=== PATIENT | female | born 1990 | race African-American/Black ===

== ENCOUNTER 2016-10-12 17:34 | Emergency (ER) | payer OTHER ==
[~2016-10-12] VITALS: Ht 152.4 cm; Wt 79.4 kg
[2016-10-12 17:35] VITALS: BP 127/64
--- NOTE | 2016-10-12 18:09 | PHYS DOC ---
Past Medical History Past Medical History: No Pertinent History Past Surgical History: Cholecystectomy Alcohol Use: None Drug Use: None Adult General Chief Complaint Chief Complaint: ABSCESS HPI HPI Patient is a 26 year old female presents to the emergency department stating that she has an abscess under her left axilla. She states it's been there for the last week. She states within the last 2 days it is becoming larger. Patient denies any drainage coming from the area. Denies any fever, chills or any nausea vomiting. Patient denies any previous history of abscesses. Review of Systems Review of Systems Constitutional: Denies fever or chills [] Eyes: Denies change in visual acuity, redness, or eye pain [] HENT: Denies nasal congestion or sore throat [] Respiratory: Denies cough or shortness of breath [] Cardiovascular: No additional information not addressed in HPI [] GI: Denies abdominal pain, nausea, vomiting, bloody stools or diarrhea [] : Denies dysuria or hematuria [] Musculoskeletal: Denies back pain or joint pain [] Integument: Denies rash or skin lesions. Complaint of abscess left axilla Neurologic: Denies headache, focal weakness or sensory changes [] Endocrine: Denies polyuria or polydipsia [] Current Medications Current Medications Current Medications Medications (Trade) Dose Ordered Sig/Sabrina Start Time Stop Time Status Last Admin Dose Admin Lidocaine/Sodium Bicarbonate (Buffered Lidocaine 1%) 20 ml 1X ONCE 10/12/16 18:15 10/12/16 18:16 DC 10/12/16 18:21 20 ML Allergies Allergies Allergies Coded Allergies Type Severity Reaction Last Updated Verified No Known Drug Allergies 03/23/14 No Physical Exam Physical Exam Constitutional: Well developed, well nourished, no acute distress, non-toxic appearance. [] HENT: Normocephalic, atraumatic, bilateral external ears normal, oropharynx moist, no oral exudates, nose normal. [] Eyes: PERRLA, EOMI, conjunctiva normal, no discharge. [] Neck: Normal range of motion, no tenderness, supple, no stridor. [] Cardiovascular: Patient pink warm and dry Lungs & Thorax: No respiratory distress noted Skin: Warm, dry, no erythema, no rash. Left axilla with cough ball size abscess noted. The area appears to be very fluctuant red warm and tender Back: No tenderness Extremities: No tenderness, no cyanosis, no clubbing, ROM intact, no edema. [] Neurologic: Alert and oriented X 3, normal motor function, normal sensory function, no focal deficits noted. [] Psychologic: Affect normal, judgement normal, mood normal. [] Current Patient Data Vital Signs Vital Signs Date Time Temp Pulse Resp B/P (MAP) Pulse Ox O2 Delivery O2 Flow Rate FiO2 10/12/16 17:35 98.6 70 16 97 Room Air 98.6 EKG EKG [] Radiology/Procedures Radiology/Procedures [] Course & Med Decision Making Course & Med Decision Making Pertinent Labs and Imaging studies reviewed. (See chart for details) Patient was provided with discharge instructions treatment regimens and follow- up recommendations to be placed on Bactrim for ear infection. She'll also be provided with hydrocodone for severe pain and discomfort. Recommended that she has many watch her children were taken hydrocodone as this causes drowsiness. Recommended warm moist packs to the axillary area 5 times a day. Recommended following up with the primary care physician in next 3-5 days. Signs symptoms to return back to emergency department been provided. Patient agrees with discharge instructions, treatment regimens and follow-up recommendations. All questions and concerns were answered patient's bedside. [] Dragon Disclaimer Dragon Disclaimer This electronic medical record was generated, in whole or in part, using a voice recognition dictation system. Departure Departure Impression: Primary Impression: Abscess Disposition: 01 HOME, SELF-CARE Condition: STABLE Referrals: MARY JAVIER MD (PCP) Patient Instructions: Abscess, [id number], Incision and Drainage, Care After Additional Instructions: Activity as tolerated. Medications as prescribed. You may also take ibuprofen for pain and discomfort. Hydrocodone will cause drowsiness do not take any be alert and oriented. Warm moist packs to the area 5 times a day. Do not remove the packing. It may have her follow out on its own. Follow-up primary care physician in the next 2-5 days. Return back to emergency prior signs symptoms of become worse. Scripts Hydrocodone/Apap 5-325 (NORCO 5-325 TABLET) 1 Each Tablet 1 TAB PO PRN Q6HRS Y for PAIN, #20 TAB 0 Refills Prov: JYOTSNA REED DENTURE PROCESSOR 10/12/16 Sulfamethoxazole/Trimethoprim (BACTRIM DS TABLET) 1 Each Tablet 2 TAB PO BID, #40 TAB Prov: JYOTSNA REED APRN 10/12/16 Incision and Drainage Incision and Drainage : Site: left axilla Blade Size: 11 I & D Procedure: betadine prep Progress Site was cleaned with Betadine 1% lidocaine buffered was injected into the area with 6 mL. Site was incised with a #11 blade with thick yellow drainage noted from the area. Patient's site was packed with quarter-inch Nu Gauze. Patient tolerated the procedure well. JYOTSNA REED APRN Oct 12, 2016 18:08
[2016-10-12] MEDS ORDERED: LIDOCAINE 1% / SOD BICARB 8.4% 20 ML VIAL. IJ ONE (18:15)
[2016-10-12] MEDS ORDERED: HYDR-971 PO (19:06)
[2016-10-12] MEDS ORDERED: SULF1TAB24 PO (19:06)
== END 2016-10-12 19:12 | disposition home or self-care (01) ==
LOC: ER 17:34
DX: L02.412 Cutaneous abscess of left axilla (principal); Z90.89 Acquired absence of other organs
CPT/HCPCS: 10060; 99283-25

== ENCOUNTER 2017-08-21 16:04 | Emergency (ER) | payer OTHER ==
[2017-08-21] MEDS: LIDOCAINE WITH 8.4% SOD BICARB 3 ML DISP.SYRIN. INJ (16:45)
== END 2017-08-21 17:22 | disposition home or self-care (01) ==
LOC: ER 17:22
DX: L02.411 Cutaneous abscess of right axilla (principal); Z90.49 Acquired absence of other specified parts of digestive tract; Z98.51 Tubal ligation status
CPT/HCPCS: 10060; 99283

== ENCOUNTER 2017-10-27 07:37 | Emergency (ER) | payer OTHER ==
[~2017-10-27] VITALS: Ht 165.1 cm; Wt 63.5 kg
[~2017-10-27 07:37] MED LIST: CEPH500T PO; HYDR-971 PO; SULF1TAB24 PO
[2017-10-27 08:05] LABS: BILIRUBIN,URINE NEGATIVE (NEG); CLARITY,URINE CLEAR; COLOR,URINE YELLOW; NITRITE,URINE NEGATIVE (NEG); PROTEIN,URINE NEGATIVE (NEG-TRACE)
[2017-10-27 08:25] LABS: SQUAMOUS EPITHELIAL CELL,UR FEW /LPF
[2017-10-27 08:26] LABS: BACTERIA,URINE 0 /HPF (0-FEW); RBC,URINE 0 /HPF (0-2)
[2017-10-27 08:50] VITALS: BP 153/82
--- NOTE | 2017-10-27 09:15 | PHYS DOC ---
Past Medical History Past Medical History: No Pertinent History Past Surgical History: Cholecystectomy, Tubal ligation Additional Information: Smokes about 1/2 PPD. Alcohol Use: None Drug Use: None Adult General Chief Complaint Chief Complaint: FLANK PAIN HPI HPI Patient is a 27 year old female complaining of low back pain around the left flank area she said she's had it since 4 AM she had it last month but it went away on its own is mild to moderate it is dull it is worse with touching the area there is no abdominal pain no vomiting no shortness of breath no chest pain no cough she was gOOGLIGN the possibilities and she got concerned so she came to the emergency room no numbness tingling or weakness Review of Systems Review of Systems Constitutional: Denies fever or chills [] Respiratory: Denies cough or shortness of breath [] Integument: Denies rash or skin lesions [] Neurologic: Denies headache, focal weakness or sensory changes [] Endocrine: Denies polyuria or polydipsia [] All other systems were reviewed and found to be within normal limits, except as documented in this note. Allergies Allergies Allergies Coded Allergies Type Severity Reaction Last Updated Verified No Known Drug Allergies 03/23/14 No Physical Exam Physical Exam Constitutional: Well developed, well nourished, no acute distress, non-toxic appearance. [] HENT: Normocephalic, atraumatic, bilateral external ears normal, oropharynx moist, no oral exudates, nose normal. [] Eyes: PERRLA, EOMI, conjunctiva normal, no discharge. [] Neck: Normal range of motion, no tenderness, supple, no stridor. [] Cardiovascular:Heart rate regular rhythm, no murmur [] Lungs & Thorax: Bilateral breath sounds clear to auscultation [] Abdomen: Bowel sounds normal, soft, no tenderness, no masses, no pulsatile masses. [] Skin: Warm, dry, no erythema, no rash. [] Back: Left mild tenderness in the paraspinous area Extremities: No tenderness, no cyanosis, no clubbing, ROM intact, no edema. [] Neurologic: Alert and oriented X 3, normal motor function, normal sensory function, no focal deficits noted. [] Psychologic: Affect normal, judgement normal, mood normal. [] Current Patient Data Vital Signs Vital Signs Date Time Temp Pulse Resp B/P (MAP) Pulse Ox O2 Delivery O2 Flow Rate FiO2 10/27/17 07:51 98.8 65 18 142/83 (102) 100 Room Air 98.8 Lab Values Laboratory Tests Test 10/27/17 07:56 10/27/17 08:00 POC Urine HCG, Qualitative Hcg negative (Negative) Urine Collection Type Unknown Urine Color Yellow Urine Clarity Clear Urine pH 7.0 Urine Specific Dexter 1.010 Urine Protein Negative mg/dL (NEG-TRACE) Urine Glucose (UA) Negative mg/dL (NEG) Urine Ketones (Stick) Negative mg/dL (NEG) Urine Blood Negative (NEG) Urine Nitrite Negative (NEG) Urine Bilirubin Negative (NEG) Urine Urobilinogen Dipstick 1.0 mg/dL (0.2 mg/dL) Urine Leukocyte Esterase Trace (NEG) Urine RBC 0 /HPF (0-2) Urine WBC 1-4 /HPF (0-4) Urine Squamous Epithelial Cells Few /LPF Urine Bacteria 0 /HPF (0-FEW) EKG EKG [] Radiology/Procedures Radiology/Procedures [] Course & Med Decision Making Course & Med Decision Making Pertinent Labs and Imaging studies reviewed. (See chart for details) []27 no presenting with low back pain abdomen was totally nontender patient is neuro intact he just lateral mild mostly muscular tenderness on examination here is negative no blood I don't think this is a kidney stone she is well-appearing very well-appearing her first blood pressure was normal the second one was mildly elevated I did advise her to get follow-up within 1 month for that. Reassurance provided return precautions discussed Dragon Disclaimer Dragon Disclaimer This electronic medical record was generated, in whole or in part, using a voice recognition dictation system. Departure Departure Impression: Primary Impression: Back pain Disposition: 01 HOME, SELF-CARE Condition: STABLE Patient Instructions: Back Pain, Adult, [id number] LEANDRO CAZARES MD Oct 27, 2017 09:15
== END 2017-10-27 09:44 | disposition home or self-care (01) ==
LOC: ER 07:37
DX: M54.5 Low back pain (principal); F17.200 Nicotine dependence, unspecified, uncomplicated; Z90.49 Acquired absence of other specified parts of digestive tract
CPT/HCPCS: 81001; 81025; 87086; 99284